=== PATIENT | female | born 1935 | race Caucasian/White ===

== ENCOUNTER 2019-09-25 10:49 | Inpatient (IN) ==
[2019-09-25] MEDS ORDERED: NS 0.9% 1000 ml BAG 1,000 ML IV ONE ×2 (11:01→15:20)
[2019-09-25 12:25] LABS: Sodium 142 mmol/L (135-145)
[2019-09-25 12:30] LABS: Alcohol, S < 10 mg/dL (<10)
[2019-09-25 12:31] LABS: ALT 15 U/L (7-52); Albumin/Globulin Ratio 1.1 (1-3); Alkaline Phosphatase 83 U/L (34-104); BUN/Creatinine Ratio 28.3 (8-20); Blood Urea Nitrogen 60 mg/dL (6-24); EGFR Non-African American 22.3 (>60); Globulin 3.5 g/dL (2-4); Glucose 114 mg/dL (70-100); Total Protein 7.5 g/dL (6.4-8.9)
[2019-09-25 12:33] LABS: Anion Gap 12 mmol/L (2-11); Chloride 118 mmol/L (101-111); Troponin I 0.06 ng/mL (<0.03)
[2019-09-25 14:02] LABS: CO2 Carbon Dioxide 12 mmol/L (22-32)
[2019-09-25 14:30] LABS: ABS Basophils 0.1 10^3/ul (0-0.2); ABS Lymphocytes 0.4 10^3/ul (1.0-4.8); ABS Monocytes 0.7 10^3/ul (0-0.8); Hematocrit 36 % (35-47); Hemoglobin 12.2 g/dL (12.0-16.0); Lymphocyte % 2.4 %; Mean Corpuscular HGB Conc 34 g/dL (31-36); Mean Corpuscular Hemoglobin 29 pg (27-31); Mean Corpuscular Volume 87 fL (80-97); Mean Platelet Volume 9.4 fL (7.4-10.4); Platelet Count 214 10^3/uL (150-450); Red Blood Count 4.17 10^6 /uL (3.70-4.87); Red Cell Distribution Width 18 % (10-15); White Blood Count 14.9 10^3/uL (3.5-10.8)
[2019-09-25 14:54] LABS: Potassium Redraw 6.2 mmol/L (3.5-5.0)
[2019-09-25] MEDS ORDERED: Magnesium Hydroxide LIQ 30 ML UDC PO PRN (16:28)
[2019-09-25] MEDS ORDERED: Sodium Polystyrene ORAL.SUSP 15 GM/60 ML BTL PO ONE (16:37)
[2019-09-25] MEDS: NS 0.9% 1000 ml BAG 1,000 ML IV SCH (18:05)
[2019-09-25 18:06] LABS: Urine Appearance Cloudy; Urine Bilirubin Negative (Negative); Urine Blood Negative (Negative); Urine Color Amber; Urine Glucose Negative (Negative); Urine Ketones Negative (Negative); Urine Nitrite Negative (Negative); Urine Protein Negative (Negative); Urine Specific Gravity 1.017 (1.010-1.030); Urine Urobilinogen Negative (Negative)
[2019-09-25 19:05] LABS: BUN/Creatinine Ratio 33.8 (8-20); Calcium 8.3 mg/dL (8.6-10.3); EGFR African American 38.2 (>60); EGFR Non-African American 31.5 (>60)
[2019-09-25 19:11] LABS: Potassium 5.6 mmol/L (3.5-5.0)
[2019-09-25 19:12] LABS: Troponin I 0.05 ng/mL (<0.03)
[2019-09-25] MEDS: Heparin 5000 UNITS/ML VIAL(*) 1 ml vial SUBCUT SCH (21:08)
[2019-09-25 22:53] LABS: Troponin I 0.06 ng/mL (<0.03)
[2019-09-26] MEDS: Heparin 5000 UNITS/ML VIAL(*) 1 ml vial SUBCUT SCH ×3 (05:25→22:41)
[2019-09-26 06:01] LABS: Albumin 3.2 g/dL (3.2-5.2); Calcium 8.3 mg/dL (8.6-10.3); Potassium 4.6 mmol/L (3.5-5.0); Sodium 143 mmol/L (135-145)
[2019-09-26 06:02] LABS: Chloride 121 mmol/L (101-111)
[2019-09-26 06:06] LABS: BUN/Creatinine Ratio 32.8 (8-20); Blood Urea Nitrogen 40 mg/dL (6-24); EGFR African American 51.1 (>60); EGFR Non-African American 42.2 (>60); Glucose 77 mg/dL (70-100)
[2019-09-26 06:13] LABS: Anion Gap 9 mmol/L (2-11)
[2019-09-26 06:14] LABS: CO2 Carbon Dioxide 13 mmol/L (22-32)
[2019-09-26 06:15] LABS: Troponin I 0.06 ng/mL (<0.03)
[2019-09-26 06:29] LABS: ALT 11 U/L (7-52); AST 17 U/L (13-39); Albumin/Globulin Ratio 1.2 (1-3); Alkaline Phosphatase 74 U/L (34-104); Globulin 2.6 g/dL (2-4); Total Protein 5.8 g/dL (6.4-8.9)
[2019-09-26 06:32] LABS: Hematocrit 39 % (35-47); Hemoglobin 12.7 g/dL (12.0-16.0); Mean Corpuscular HGB Conc 33 g/dL (31-36); Mean Corpuscular Hemoglobin 29 pg (27-31); Mean Corpuscular Volume 88 fL (80-97); Mean Platelet Volume 9.1 fL (7.4-10.4); Platelet Count 153 10^3/uL (150-450); Red Blood Count 4.38 10^6 /uL (3.70-4.87); Red Cell Distribution Width 18 % (10-15); White Blood Count 10.4 10^3/uL (3.5-10.8)
[2019-09-26 07:07] LABS: ABS Lymphocytes 0.8 10^3/ul (1.0-4.8); ABS Monocytes 0.8 10^3/ul (0-0.8); Eosinophil % 0.2 %; Lymphocyte % 7.9 %
[2019-09-26] MEDS: NS 0.9% 1000 ml BAG 1,000 ML IV SCH ×2 (08:44→22:52)
[2019-09-26 09:28] LABS: Troponin I 0.06 ng/mL (<0.03)
[2019-09-26 17:35] LABS: C Reactive Protein 70.91 mg/L (<8.01); Cholesterol 145 mg/dL; HDL Cholesterol 40.4 mg/dL; LDL Cholesterol 76 mg/dL; Triglycerides 142 mg/dL
[2019-09-27] MEDS: Heparin 5000 UNITS/ML VIAL(*) 1 ml vial SUBCUT SCH ×3 (05:05→21:01)
[2019-09-27 06:51] LABS: ABS Eosinophils 0.1 10^3/ul (0-0.6); ABS Lymphocytes 1.1 10^3/ul (1.0-4.8); ABS Monocytes 0.6 10^3/ul (0-0.8); Eosinophil % 0.6 %; Hematocrit 39 % (35-47); Hemoglobin 13.5 g/dL (12.0-16.0); Lymphocyte % 12.9 %; Mean Corpuscular HGB Conc 35 g/dL (31-36); Mean Corpuscular Hemoglobin 30 pg (27-31); Mean Corpuscular Volume 87 fL (80-97); Mean Platelet Volume 8.6 fL (7.4-10.4); Nucleated Red Blood Cells % 0.1; Platelet Count 100 10^3/uL (150-450); Red Blood Count 4.53 10^6 /uL (3.70-4.87); Red Cell Distribution Width 17 % (10-15); White Blood Count 8.7 10^3/uL (3.5-10.8)
[2019-09-27 07:05] LABS: Albumin 3.2 g/dL (3.2-5.2); Albumin/Globulin Ratio 1.1 (1-3); BUN/Creatinine Ratio 26.4 (8-20); Calcium 8.4 mg/dL (8.6-10.3); EGFR African American 75.4 (>60); EGFR Non-African American 62.3 (>60); Globulin 2.9 g/dL (2-4); Potassium 3.6 mmol/L (3.5-5.0); Total Bilirubin 0.9 mg/dL (0.2-1.0); Total Protein 6.1 g/dL (6.4-8.9)
[2019-09-27] MEDS: Sodium Bicarb 650 mg (ANTACID) TAB PO SCH ×3 (07:59→16:34)
[2019-09-27] MEDS: NS 0.9% 1000 ml BAG 1,000 ML IV SCH (10:04)
[2019-09-28] MEDS: NS 0.9% 1000 ml BAG 1,000 ML IV SCH (00:26)
[2019-09-28] MEDS: Heparin 5000 UNITS/ML VIAL(*) 1 ml vial SUBCUT SCH ×4 (00:38→22:38)
[2019-09-28 07:16] LABS: ABS Lymphocytes 0.9 10^3/ul (1.0-4.8); ABS Monocytes 0.7 10^3/ul (0-0.8); Eosinophil % 0.5 %; Hematocrit 38 % (35-47); Hemoglobin 12.8 g/dL (12.0-16.0); Lymphocyte % 10.3 %; Mean Corpuscular HGB Conc 34 g/dL (31-36); Mean Corpuscular Hemoglobin 30 pg (27-31); Mean Corpuscular Volume 87 fL (80-97); Mean Platelet Volume 9.7 fL (7.4-10.4); Platelet Count 191 10^3/uL (150-450); Red Blood Count 4.33 10^6 /uL (3.70-4.87); Red Cell Distribution Width 17 % (10-15); White Blood Count 8.7 10^3/uL (3.5-10.8)
[2019-09-28 07:34] LABS: Albumin/Globulin Ratio 1.1 (1-3); BUN/Creatinine Ratio 28.8 (8-20); EGFR African American 92.4 (>60); EGFR Non-African American 76.3 (>60); Globulin 2.7 g/dL (2-4); Total Bilirubin 0.8 mg/dL (0.2-1.0); Total Protein 5.7 g/dL (6.4-8.9)
[2019-09-28] MEDS ORDERED: Potassium Chloride LIQUID 20 MEQ/15 ML LIQUID PO ONE (07:49)
[2019-09-28 08:14] LABS: Magnesium 1.4 mg/dL (1.9-2.7)
[2019-09-28] MEDS: Sodium Bicarb 650 mg (ANTACID) TAB PO SCH ×3 (10:25→17:51)
[2019-09-28] MEDS: KCL 20 MEQ/100 ML IVPREMIX 20 MEQ/100 ML BAG IV SCH ×2 (10:26→12:45)
[2019-09-29] MEDS: Heparin 5000 UNITS/ML VIAL(*) 1 ml vial SUBCUT SCH ×3 (05:28→20:36)
[2019-09-29] MEDS ORDERED: Iohexol 350 (CONTRAST) 500 ML MDV IV ONE (08:09)
[2019-09-29] MEDS: NS 0.9% 1000 ml BAG 1,000 ML IV SCH (08:15)
[2019-09-29] MEDS: Sodium Bicarb 650 mg (ANTACID) TAB PO SCH ×3 (08:22→17:48)
[2019-09-29 10:33] LABS: CO2 Carbon Dioxide 15 mmol/L (22-32); Calcium 8.1 mg/dL (8.6-10.3); Magnesium 1.6 mg/dL (1.9-2.7); Sodium 145 mmol/L (135-145)
[2019-09-29 10:38] LABS: BUN/Creatinine Ratio 29.7 (8-20); Blood Urea Nitrogen 22 mg/dL (6-24); EGFR African American 90.9 (>60); EGFR Non-African American 75.1 (>60); Glucose 101 mg/dL (70-100)
[2019-09-29 10:44] LABS: Anion Gap 14 mmol/L (2-11); Chloride 116 mmol/L (101-111)
[2019-09-29] MEDS ORDERED: Magnesium Sulfate 2 gm BAG 2 GM/50 ML BAG IVPB ONE (14:44)
[2019-09-30] MEDS: Heparin 5000 UNITS/ML VIAL(*) 1 ml vial SUBCUT SCH ×2 (05:53→13:17)
[2019-09-30] MEDS: Sodium Bicarb 650 mg (ANTACID) TAB PO SCH ×3 (07:52→17:49)
[2019-09-30 10:43] LABS: Albumin 3.2 g/dL (3.2-5.2); Albumin/Globulin Ratio 1.2 (1-3); BUN/Creatinine Ratio 27.9 (8-20); Calcium 8.5 mg/dL (8.6-10.3); EGFR African American 100.2 (>60); EGFR Non-African American 82.8 (>60); Globulin 2.7 g/dL (2-4); Magnesium 2.2 mg/dL (1.9-2.7); Potassium 3.2 mmol/L (3.5-5.0); Total Bilirubin 0.6 mg/dL (0.2-1.0); Total Protein 5.9 g/dL (6.4-8.9)
[2019-09-30] MEDS ORDERED: Potassium Chloride LIQUID 20 MEQ/15 ML LIQUID PO ONE (13:50)
[2019-09-30 19:12] VITALS: BP 142/62
== END 2019-09-30 19:50 | DRG 65 ==
LOC: ED 10:49 → MEDTELE 16:28
PROVIDERS: ADMIT Internal Medicine; ATTEND Internal Medicine